=== PATIENT | female | born 1960 | race Caucasian/White ===

== ENCOUNTER → 2018-11-14 | Outpatient (CLI) | payer MEDICAID ==
[~2018-11-14] MED LIST: ACET325T14 PO; ALBU18HF INH; ALPR0.5T3 PO; BUDE0.5A NPPB; BUDE10.2 INH; BUPR150T73 PO; BUPR75TA6 PO; CLON0.5T PO; CLOT10TR PO; CYCL-259 PO; DIPH25CA61 PO; DOCU-131 PO; ESZO3TAB28 PO; FAMO20TA7 PO; FLUC200T PO; FLUD0.1T PO; FLUT16SP NAS; FLUT9.9S NAS; FOLI-17 PO; GABA-826 PO; GABA300C10 PO; GUAI5SYR PO; LEVE100020 PO; LEVE750T37 PO; LORA10TA75 PO; LORA1TAB PO; MONT10TA9 PO; MULT9LIQ10 PO; OMEP40CA6 PO; PARO20TA4 PO; PARO30TA3 PO; PARO30TA45 PO; PROP10TA16 PO; QUET25TA7 PO; SUMA50TA4 PO; THIA100T67 PO; TRAZ-137 PO; TRAZ300T2 PO; ZALE10CA PO; [UNRECOGNIZED DRUG - OTHER] INH; nasal spray NAS; sleep med PO
== END | disposition home or self-care (01) ==
LOC: RAD 09:17
PROVIDERS: ATTEND Nurse Practitioner Family
DX: J43.9 Emphysema, unspecified (principal); J96.90 Respiratory failure, unspecified, unspecified whether with hypoxia or hypercapnia; F17.200 Nicotine dependence, unspecified, uncomplicated; Z88.5 Allergy status to narcotic agent; Z88.8 Allergy status to other drugs, medicaments and biological substances
CPT/HCPCS: 71046

== ENCOUNTER 2019-01-29 19:17 | Inpatient (IN) | payer MEDICAID ==
[~2019-01-29] VITALS: Ht 177.8 cm; Wt 108.9 kg
[~2019-01-29 19:17] MED LIST changes: -FLUT16SP NAS; +FLUT16SP24 NAS
--- NOTE | 2019-01-29 19:30 | NUR ---
SEE TRIAGE NOTE. PT PLACED ON HEART MONITOR, BP CUFF, PULSE OX. XRAY AND LAB AT BS. EKG DONE ON ARRIVAL. PT C/O BOYLE AND CP, BOTH RATED 9/10. CALL LIGHT WITHIN REACH, PT UPDATED ON POC.
[2019-01-29 19:47] LABS: BASOPHILS # (AUTO) 0.04 x10^3/uL (0-0.1); BASOPHILS % (AUTO) 0 % (0-1); EOSINOPHILS # (AUTO) 0.11 x10^3/uL (0-0.4); EOSINOPHILS % (AUTO) 1 % (1-7); LYMPHOCYTES # (AUTO) 2.12 x10^3/uL (1-3.4); LYMPHOCYTES % (AUTO) 22 % (22-44); MD NO; MEAN CORPUSCULAR HEMOGLOBIN 33.4 pg (27.0-34.8); MEAN CORPUSCULAR HGB CONC 33.8 g/dL (32.4-35.8); MEAN CORPUSCULAR VOLUME 98.9 fL (80-100); MEAN PLATELET VOLUME 7.6 fL (7.4-10.4); MONOCYTES # (AUTO) 0.57 x10^3/uL (0.2-0.8); MONOCYTES % (AUTO) 6 % (2-9); NEUTROPHILS # (AUTO) 6.67 x10^3/uL (1.8-6.8); NEUTROPHILS % (AUTO) 70 % (42-75); PLATELET COUNT 250 x10^3/uL (130-400); RED BLOOD COUNT 4.65 x10^6/uL (3.82-5.3); RED CELL DISTRIBUTION WIDTH 13.9 % (9.6-15.2)
[2019-01-29 19:58] LABS: ALANINE AMINOTRANSFERASE 35 U/L (12-78); ANION GAP 11 mmol/L (5-15); CALCIUM 8.9 mg/dL (8.5-10.1); CHLORIDE 106 mmol/L (98-107)
[2019-01-29 20:03] LABS: ALKALINE PHOSPHATASE 207 U/L (45-117); BILIRUBIN,TOTAL 0.4 mg/dL (0.2-1.0); CREATININE 1.17 mg/dL (0.55-1.02); TOTAL PROTEIN 8.4 g/dL (6.4-8.2); TROPONIN I 0.032 ng/mL (0.000-0.045)
--- NOTE | 2019-01-29 20:15 | NUR ---
PT RESTING ON SIDE, APPEARS TO BE SLEEPING/NAD. AWAITING ADD ON LAB-BNP. CALL LIGHT WITHIN REACH.
[2019-01-29] MEDS ORDERED: MORPHINE SULFATE 4 MG/ML, 1ML IVPush PRN ×3 (21:00)
[2019-01-29] MEDS ORDERED: ONDANSETRON 2MG/ML, 2ML IVPush ONE (21:00)
[2019-01-29] MEDS ORDERED: ASPIRIN 81 MG TABLET CHEW PO ONE (21:00)
[2019-01-29] MEDS ORDERED: ONDANSETRON 2MG/ML, 2ML IVPush PRN ×2 (21:00→22:00)
[2019-01-29] MEDS ORDERED: ONDANSETRON 2MG/ML, 2ML ONE (21:11)
[2019-01-29] MEDS ORDERED: MORPHINE SULFATE 4 MG/ML, 1ML ONE (21:11)
[2019-01-29] MEDS ORDERED: HEPARIN 5,000 UNITS/ML, 1ML SQ SCH (22:00)
[2019-01-29] MEDS ORDERED: ACETAMINOPHEN 325 MG TABLET PO PRN (22:00)
[2019-01-29] MEDS ORDERED: POLYETHYLENE GLYCOL 17 GM PACKET PO PRN (22:00)
[2019-01-29] MEDS ORDERED: NITROGLYCERIN 0.4 MG BOTTLE (25 TABS) SL PRN (22:00)
[2019-01-29] MEDS ORDERED: BISACODYL 10 MG SUPP PR PRN (22:00)
[2019-01-29] MEDS ORDERED: BUDE10.2 HOMEINH (22:57)
[2019-01-29] MEDS ORDERED: CYCL30CA PO (22:57)
[2019-01-29] MEDS ORDERED: ZOLP5TAB PO (22:57)
[2019-01-29] MEDS ORDERED: ALPR0.5T PO (23:01)
[2019-01-29] MEDS: GABAPENTIN 300 MG CAPSULE PO SCH (23:02)
[2019-01-29] MEDS: SODIUM CHLORIDE FLUSH 10ML SYR IVF SCH (23:02)
[2019-01-29 23:05] LABS: FREE T4 (FREE THYROXINE) 1.03 ng/dL (0.76-1.46); THYROID STIMULATING HORMONE 1.35 mIU/L (0.358-3.740)
[2019-01-29 23:29] VITALS: BP 134/76
[2019-01-30] MEDS ORDERED: ALBUTEROL SULFATE 2.5 MG/3 ML NPPB PRN
[2019-01-30] MEDS ORDERED: ZOLPIDEM 5MG TABLET ONE (00:07)
[2019-01-30] MEDS: morphine SULFATE 10 MG/ML, 1ML IVPush PRN ×6 (00:13→22:40)
[2019-01-30] MEDS: ZOLPIDEM 5MG TABLET PO PRN ×2 (00:13→23:39)
[2019-01-30 00:23] VITALS: BP 149/88
[2019-01-30 02:35] LABS: BASOPHILS # (AUTO) 0.04 x10^3/uL (0-0.1); BASOPHILS % (AUTO) 1 % (0-1); EOSINOPHILS # (AUTO) 0.19 x10^3/uL (0-0.4); EOSINOPHILS % (AUTO) 3 % (1-7); LYMPHOCYTES # (AUTO) 2.67 x10^3/uL (1-3.4); LYMPHOCYTES % (AUTO) 36 % (22-44); MD NO; MEAN CORPUSCULAR HEMOGLOBIN 33.2 pg (27.0-34.8); MEAN CORPUSCULAR VOLUME 100.5 fL (80-100); MEAN PLATELET VOLUME 7.7 fL (7.4-10.4); MONOCYTES # (AUTO) 0.66 x10^3/uL (0.2-0.8); MONOCYTES % (AUTO) 9 % (2-9); NEUTROPHILS % (AUTO) 52 % (42-75); PLATELET COUNT 235 x10^3/uL (130-400); RED BLOOD COUNT 4.56 x10^6/uL (3.82-5.3); RED CELL DISTRIBUTION WIDTH 14.1 % (9.6-15.2)
[2019-01-30 02:50] LABS: TROPONIN I 0.516 ng/mL (0.000-0.045)
[2019-01-30 02:52] LABS: ALANINE AMINOTRANSFERASE 40 U/L (12-78); ALBUMIN 3.7 g/dL (3.4-5.0); ANION GAP 10 mmol/L (5-15); CALCIUM 8.8 mg/dL (8.5-10.1); CHLORIDE 107 mmol/L (98-107); CHOLESTEROL, TOTAL 233 mg/dL (140-239)
[2019-01-30 02:54] LABS: ALKALINE PHOSPHATASE 267 U/L (45-117); BILIRUBIN,TOTAL 0.6 mg/dL (0.2-1.0); CHOL/HDL RATIO 4.2; CREATININE 0.92 mg/dL (0.55-1.02); HDL CHOL % 24 % (28-40); HDL CHOLESTEROL (DIRECT) 56 mg/dL (40-60); LDL CHOLESTEROL,CALCULATED 149 mg/dL (54-169); LDL/HDL RATIO 2.7 (0.5-3.0); TOTAL PROTEIN 8.1 g/dL (6.4-8.2); TRIGLYCERIDES 142 mg/dL (50-200); VLDL CHOLESTEROL 28 mg/dL (0-25)
[2019-01-30] MEDS ORDERED: OMNIPAQUE 350 MG/ML, 100ML BOTTLE ONE (03:08)
[2019-01-30] MEDS ORDERED: HEPARIN 5,000 UNITS/ML, 1ML IV PRN (03:30)
[2019-01-30] MEDS ORDERED: HEPARIN 25,000 UNITS/500ML PMX 500 ML IV PRN (03:30)
[2019-01-30] MEDS ORDERED: HEPARIN 5,000 UNITS/ML, 1ML IV ONE (03:30)
[2019-01-30] MEDS: ATORVASTATIN 40 MG TABLET PO SCH ×2 (03:39→20:45)
[2019-01-30] MEDS: ASPIRIN 81 MG TABLET EC PO SCH (06:04)
[2019-01-30 08:27] VITALS: BP 112/79
[2019-01-30 08:53] LABS: TROPONIN I 0.877 ng/mL (0.000-0.045)
[2019-01-30] MEDS: SENNA/DOCUSATE TABLET PO SCH (09:00)
[2019-01-30] MEDS: BUDESONIDE 0.5 MG/2 ML INHA NPPB SCH ×2 (09:00→18:13)
[2019-01-30] MEDS: PAROXETINE 20 MG TABLET PO SCH (09:03)
[2019-01-30] MEDS: GABAPENTIN 300 MG CAPSULE PO SCH ×3 (09:03→20:45)
[2019-01-30] MEDS: SODIUM CHLORIDE FLUSH 10ML SYR IVF SCH ×2 (09:04→20:45)
[2019-01-30] MEDS: CARVEDILOL 3.125 MG TABLET PO SCH ×2 (09:54→20:45)
[2019-01-30] MEDS ORDERED: SODIUM CHLORIDE 0.9% 1,000 ML IV SCH (11:26)
[2019-01-30 13:43] VITALS: BP 93/61
[2019-01-30] MEDS ORDERED: VERAPAMIL 2.5 MG/ML, 2ML ONE (14:26)
[2019-01-30] MEDS ORDERED: BIVALIRUDIN 250 MG ONE (14:26)
[2019-01-30] MEDS ORDERED: MIDAZOLAM 1 MG/ML, 5ML ONE (14:26)
[2019-01-30] MEDS ORDERED: TICAGRELOR 90 MG TABLET ONE (14:26)
[2019-01-30] MEDS ORDERED: FENTANYL PF 100 MCG/2ML ONE (14:26)
[2019-01-30] MEDS ORDERED: LIDOCAINE-MPF 1%, 5ML ONE (14:27)
[2019-01-30] MEDS: SODIUM CHLORIDE 0.9% 1,000 ML IV SCH ×2 (15:33→19:03)
[2019-01-30 18:28] VITALS: BP 110/73
[2019-01-31 00:04] VITALS: BP 106/74
[2019-01-31] MEDS: morphine SULFATE 10 MG/ML, 1ML IVPush PRN ×5 (03:37→17:52)
[2019-01-31 04:59] LABS: ANION GAP 7 mmol/L (5-15); CALCIUM 8.4 mg/dL (8.5-10.1); CHLORIDE 109 mmol/L (98-107); CREATININE 0.75 mg/dL (0.55-1.02)
[2019-01-31 05:13] LABS: BASOPHILS # (AUTO) 0.02 x10^3/uL (0-0.1); BASOPHILS % (AUTO) 1 % (0-1); EOSINOPHILS # (AUTO) 0.14 x10^3/uL (0-0.4); EOSINOPHILS % (AUTO) 3 % (1-7); LYMPHOCYTES # (AUTO) 1.73 x10^3/uL (1-3.4); LYMPHOCYTES % (AUTO) 40 % (22-44); MD NO; MEAN CORPUSCULAR HEMOGLOBIN 32.5 pg (27.0-34.8); MEAN CORPUSCULAR HGB CONC 32.3 g/dL (32.4-35.8); MEAN CORPUSCULAR VOLUME 100.6 fL (80-100); MONOCYTES # (AUTO) 0.35 x10^3/uL (0.2-0.8); MONOCYTES % (AUTO) 8 % (2-9); NEUTROPHILS # (AUTO) 2.07 x10^3/uL (1.8-6.8); NEUTROPHILS % (AUTO) 48 % (42-75); PLATELET COUNT 193 x10^3/uL (130-400); RED BLOOD COUNT 4.17 x10^6/uL (3.82-5.3); RED CELL DISTRIBUTION WIDTH 14.4 % (9.6-15.2)
[2019-01-31] MEDS: CARVEDILOL 3.125 MG TABLET PO SCH ×2 (05:20→17:52)
[2019-01-31] MEDS: ASPIRIN 81 MG TABLET EC PO SCH (05:20)
[2019-01-31] MEDS: BUDESONIDE 0.5 MG/2 ML INHA NPPB SCH (06:49)
[2019-01-31 06:52] VITALS: BP 113/74
[2019-01-31] MEDS: SODIUM CHLORIDE 0.9% 1,000 ML IV SCH ×2 (07:10→15:10)
[2019-01-31] MEDS: SENNA/DOCUSATE TABLET PO SCH (09:45)
[2019-01-31] MEDS: GABAPENTIN 300 MG CAPSULE PO SCH ×2 (09:45→17:52)
[2019-01-31] MEDS: PAROXETINE 20 MG TABLET PO SCH (09:45)
[2019-01-31] MEDS: SODIUM CHLORIDE FLUSH 10ML SYR IVF SCH (09:45)
[2019-01-31 12:40] VITALS: BP 118/78
[2019-01-31] MEDS ORDERED: CARV3.1212 PO (19:07)
[2019-01-31] MEDS ORDERED: ASPI81TA45 PO (19:07)
[2019-01-31] MEDS ORDERED: ATOR40TA78 PO (19:07)
== END 2019-01-31 19:30 | disposition home or self-care (01) | DRG 281 ==
LOC: ED 20:59 → EDIP 21:45 → 5SO 22:03
PROVIDERS: ADMIT Internal Medicine; ATTEND Internal Medicine
PROC: 4A023N7 Measurement of Cardiac Sampling and Pressure, Left Heart, Percutaneous Approach (ICD-10-PCS; principal; 2019-01-30)
PROC: B2111ZZ Fluoroscopy of Multiple Coronary Arteries using Low Osmolar Contrast (ICD-10-PCS; 2019-01-30)
PROC: B2151ZZ Fluoroscopy of Left Heart using Low Osmolar Contrast (ICD-10-PCS; 2019-01-30)
DX: I21.4 Non-ST elevation (NSTEMI) myocardial infarction (principal); D68.69 Other thrombophilia; G89.29 Other chronic pain; M54.9 Dorsalgia, unspecified; Z96.653 Presence of artificial knee joint, bilateral; M17.0 Bilateral primary osteoarthritis of knee; J44.9 Chronic obstructive pulmonary disease, unspecified; I48.0 Paroxysmal atrial fibrillation; F41.9 Anxiety disorder, unspecified; F17.210 Nicotine dependence, cigarettes, uncomplicated; E66.9 Obesity, unspecified; F32.9 Major depressive disorder, single episode, unspecified; G43.909 Migraine, unspecified, not intractable, without status migrainosus; R56.9 Unspecified convulsions; E78.5 Hyperlipidemia, unspecified; I11.0 Hypertensive heart disease with heart failure; I50.9 Heart failure, unspecified; Z90.49 Acquired absence of other specified parts of digestive tract; Z82.61 Family history of arthritis; Z80.8 Family history of malignant neoplasm of other organs or systems; Z82.49 Family history of ischemic heart disease and other diseases of the circulatory system; Z88.6 Allergy status to analgesic agent; Z68.34 Body mass index [BMI] 34.0-34.9, adult; Z87.01 Personal history of pneumonia (recurrent)
CPT/HCPCS: 36415; 93458; J7626; 71045; 71046; 71275; 80048; 80053; 80061; 80307; 83880; 84439; 84443; 84484; 85025; 85520; 93005; 93306; 94640; 96374; 96375; 99156; C1769; C1894; G0378; J0583; J1644; J2250; J2405; J3010; Q9967; J2270; J7030

== ENCOUNTER 2019-04-06 07:42 | Outpatient (CLI) | payer MEDICAID ==
[~2019-04-06 07:42] MED LIST changes: +ALPR0.5T PO; +ASPI81TA45 PO; +ATOR40TA78 PO; +BUDE10.2 HOMEINH; +CARV3.1212 PO; +CYCL30CA PO; +ZOLP5TAB PO
== END 2019-04-06 23:59 | disposition home or self-care (01) ==
LOC: CFH 07:42
PROVIDERS: ATTEND Nurse Practitioner Family
DX: N64.4 Mastodynia (principal)
CPT/HCPCS: 77066; G0279

== ENCOUNTER 2019-06-04 16:44 | Emergency (ER) | payer MEDICAID ==
[~2019-06-04] VITALS: Ht 177.8 cm; Wt 100.0 kg
[~2019-06-04 16:44] MED LIST changes: +OMEP40CA42 PO; -OMEP40CA6 PO
--- NOTE | 2019-06-04 16:53 | NUR ---
PT BIB [facility] FOR ETOH W/DRAWAL. PIV WAS STARTED IN AMBULANCE BUT IV WAS ACCIDENTALLY REMOVED BY PT. APPROX 50CC FLUIDS ADMINISTERED TO PT. PT CURRENTLY RESTING ON GURNEY. TREMULOUS. VSS. WAS PLACED ON A LEGAL HOLD BY [employer] BECAUSE SHE TOLD THEM SHE TOOK ALL HER PILLS AND WANTED TO . PT STATES SHE TOOK A FEW PILLS TO HELP HER WITH WITHDRAWAL BUT NOT TO . PT CURRENLTY DENYING SI/HI. STATES HER LAST DRINK WAS AT 0200 THIS MORNING BECAUSE HER TOOK HER ALCOHOL AWAY FROM HER. 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
[2019-06-04] MEDS ORDERED: LORazepam 2 MG/ML, 1ML IM PRN (17:30)
--- NOTE | 2019-06-04 17:35 | NUR ---
PIV ATTEMPTED X2. AWARE.
[2019-06-04] MEDS ORDERED: LORazepam 2 MG/ML, 1ML ONE ×2 (17:41→18:52)
[2019-06-04 17:46] LABS: BASOPHILS # (AUTO) 0.03 x10^3/uL (0-0.1); BASOPHILS % (AUTO) 1 % (0-1); EOSINOPHILS # (AUTO) 0.09 x10^3/uL (0-0.4); EOSINOPHILS % (AUTO) 2 % (1-7); LYMPHOCYTES # (AUTO) 1.95 x10^3/uL (1-3.4); LYMPHOCYTES % (AUTO) 37 % (22-44); MD NO; MEAN CORPUSCULAR HEMOGLOBIN 34.1 pg (27.0-34.8); MEAN CORPUSCULAR HGB CONC 33.2 g/dL (32.4-35.8); MEAN CORPUSCULAR VOLUME 102.7 fL (80-100); MEAN PLATELET VOLUME 7.6 fL (7.4-10.4); MONOCYTES # (AUTO) 0.44 x10^3/uL (0.2-0.8); MONOCYTES % (AUTO) 8 % (2-9); NEUTROPHILS # (AUTO) 2.75 x10^3/uL (1.8-6.8); NEUTROPHILS % (AUTO) 52 % (42-75); PLATELET COUNT 220 x10^3/uL (130-400); RED BLOOD COUNT 4.55 x10^6/uL (3.82-5.3)
--- NOTE | 2019-06-04 17:46 | NUR ---
PT AMBULATORY WITH STEADY GAIT TO AND FROM BATHROOM. NOW RESTING ON GURNEY. NADN. MEDICATED PER EMAR. VSS.
[2019-06-04 17:58] LABS: ALBUMIN 3.6 g/dL (3.4-5.0); ANION GAP 12 mmol/L (5-15); CALCIUM 8.3 mg/dL (8.5-10.1); CHLORIDE 108 mmol/L (98-107); CREATININE 0.75 mg/dL (0.55-1.02)
[2019-06-04 18:30] LABS: AMPHETAMINE SCREEN, URINE Negative (Negative); BARBITURATE SCREEN, URINE Negative (Negative); BENZODIAZEPINE SCREEN, URINE Positive (Negative); CANNABINOID SCREEN, URINE Positive (Negative); COCAINE SCREEN, URINE Negative (Negative); METHADONE SCREEN, URINE Negative (Negative); OPIATE SCREEN, URINE Negative (Negative)
[2019-06-04] MEDS ORDERED: LORazepam 2 MG/ML, 1ML IVPush PRN (18:30)
[2019-06-04] MEDS ORDERED: DIPH,PERTUSS(ACELL),TET VAC/PF 0.5 ML IM-VACC ONE ×2 (18:30→18:52)
--- NOTE | 2019-06-04 18:36 | NUR ---
PIV BEING ATTEMPTED NOW.
--- NOTE | 2019-06-04 18:49 | NUR ---
RECEIVED REPORT FROM KAY GEIGER TO ASSUME CARE OF PT. AT THIS TIME. IV ESTABLISHED BY KAY JENNINGS. PT. TO BE MEDICATED NOW.
--- NOTE | 2019-06-04 19:01 | NUR ---
REPORT GIVEN TO KAY POWELL.
--- NOTE | 2019-06-04 19:13 | NUR ---
PT. PROVIDED WITH SANDWICH FROM [employer] WITH OK FROM DR. NI. PT. TO BE MEDICATED WITH PO LIBRIUM AND TO D/C AFTER THAT. ALL MONITORS AND SAFETY PRECAUTIONS IN PLACE. CALL LIGHT IN REACH.
[2019-06-04] MEDS ORDERED: CHLORDIAZEPOXIDE 25 MG CAPSULE PO PRN (19:30)
[2019-06-04] MEDS ORDERED: CHLORDIAZEPOXIDE 25 MG CAPSULE ONE (19:40)
--- NOTE | 2019-06-04 19:54 | NUR ---
PT. HAS DENIES ANY SI/HI SINCE THIS RN TAKING OVER AND ALSO PER REPORT FROM KAY GEIGER. PT. ATE SANDWICH PROVIDED.
[2019-06-04 19:55] VITALS: BP 108/65
== END 2019-06-04 19:57 | disposition home or self-care (01) ==
LOC: ED 19:51
DX: S00.83XA Contusion of other part of head, initial encounter (principal); S00.31XA Abrasion of nose, initial encounter; F10.239 Alcohol dependence with withdrawal, unspecified; G40.909 Epilepsy, unspecified, not intractable, without status epilepticus; I11.0 Hypertensive heart disease with heart failure; I50.9 Heart failure, unspecified; J44.9 Chronic obstructive pulmonary disease, unspecified; Z90.49 Acquired absence of other specified parts of digestive tract; W18.09XA Striking against other object with subsequent fall, initial encounter; Y93.89 Activity, other specified; Y92.89 Other specified places as the place of occurrence of the external cause; Y99.8 Other external cause status; Z88.5 Allergy status to narcotic agent; Z88.6 Allergy status to analgesic agent; Z91.048 Other nonmedicinal substance allergy status
CPT/HCPCS: 36415; 80048; 80307; 82040; 85025; 90471; 90715; 96372; 96374; 99283; J2060

== ENCOUNTER → 2019-06-18 | Outpatient (CLI) | payer MEDICAID | END | disposition home or self-care (01) | LOC: EDSTATUS 06-04 10:30 → CFH 13:36 → EDSTATUS 14:30 | PROVIDERS: ATTEND Internal Medicine | DX: J44.9 Chronic obstructive pulmonary disease, unspecified (principal); J40 Bronchitis, not specified as acute or chronic; R09.02 Hypoxemia; J43.8 Other emphysema; F41.9 Anxiety disorder, unspecified; Z87.891 Personal history of nicotine dependence; Z88.5 Allergy status to narcotic agent; Z88.6 Allergy status to analgesic agent; Z88.8 Allergy status to other drugs, medicaments and biological substances | CPT/HCPCS: 71250 ==

== ENCOUNTER 2019-08-06 17:18 | Outpatient (CLI) | payer MEDICAID ==
[~2019-08-06 17:18] MED LIST changes: +MONT10TA11 PO; -MONT10TA9 PO; -TRAZ-137 PO; +TRAZ-175 PO
== END 2019-08-06 23:59 | disposition home or self-care (01) ==
LOC: RAD 17:18
PROVIDERS: ATTEND Nurse Practitioner Family
DX: J40 Bronchitis, not specified as acute or chronic (principal); J84.10 Pulmonary fibrosis, unspecified; R05 Cough
CPT/HCPCS: 71046

== ENCOUNTER 2019-08-13 17:04 | Inpatient (IN) | payer MEDICAID ==
[~2019-08-13] VITALS: Ht 177.8 cm; Wt 87.1 kg
[~2019-08-13 17:04] MED LIST changes: -MONT10TA11 PO; +MONT10TA9 PO; +TRAZ-137 PO; -TRAZ-175 PO
--- NOTE | 2019-08-13 18:02 | NUR ---
[facility]
[2019-08-13] MEDS ORDERED: ATROVENT HFA (18:11)
[2019-08-13] MEDS ORDERED: TRILOGY (18:12)
--- NOTE | 2019-08-13 18:31 | NUR ---
PT REPORTS HER PRIMARY DOCTOR SENT HER TO BE SEEN. PT REPOERTS A CONSTANT COUGH. VS STABLE. NO ACUTE DISTRESS NOTED. PT WAS 87% RA. PT PLACED ON 2L NC. CALL LIGHT IN PLACE. WILL CONTINUE TO MONITOR.
--- NOTE | 2019-08-13 18:59 | NUR ---
Pt alert and sitting up on gurney. Lab at bedside for draw. Pt on 2.5L NC. Report received from KAY Malcolm
[2019-08-13] MEDS ORDERED: SODIUM CHLORIDE FLUSH 10ML SYR IVF ONE (19:00)
[2019-08-13] MEDS ORDERED: HYDROcodone/APAP 5/325 TABLET PO ONE ×2 (19:00→22:00)
[2019-08-13] MEDS ORDERED: methylPREDNISolone SOD SUCC 125 MG/2 ML IV ONE (19:00)
[2019-08-13] MEDS ORDERED: HYDROcodone/APAP 5/325 TABLET ONE ×2 (19:11→21:42)
[2019-08-13] MEDS ORDERED: methylPREDNISolone SOD SUCC 125 MG/2 ML ONE (19:11)
[2019-08-13 19:16] LABS: BASOPHILS # (AUTO) 0.04 x10^3/uL (0-0.1); BASOPHILS % (AUTO) 1 % (0-1); EOSINOPHILS # (AUTO) 0.22 x10^3/uL (0-0.4); EOSINOPHILS % (AUTO) 3 % (1-7); LYMPHOCYTES # (AUTO) 2.44 x10^3/uL (1-3.4); LYMPHOCYTES % (AUTO) 33 % (22-44); MD NO; MEAN CORPUSCULAR HEMOGLOBIN 33.3 pg (27.0-34.8); MEAN CORPUSCULAR HGB CONC 33.9 g/dL (32.4-35.8); MEAN CORPUSCULAR VOLUME 98.4 fL (80-100); MEAN PLATELET VOLUME 7.8 fL (7.4-10.4); MONOCYTES # (AUTO) 0.43 x10^3/uL (0.2-0.8); MONOCYTES % (AUTO) 6 % (2-9); NEUTROPHILS # (AUTO) 4.32 x10^3/uL (1.8-6.8); NEUTROPHILS % (AUTO) 58 % (42-75); PLATELET COUNT 258 x10^3/uL (130-400); RED BLOOD COUNT 4.67 x10^6/uL (3.82-5.3); RED CELL DISTRIBUTION WIDTH 14.1 % (9.6-15.2)
--- NOTE | 2019-08-13 19:25 | NUR ---
Pt medicated per SEP. Pt placed on water meter installer. Call light within reach.
[2019-08-13 19:26] LABS: ALANINE AMINOTRANSFERASE 40 U/L (12-78); ALBUMIN 3.8 g/dL (3.4-5.0); ANION GAP 8 mmol/L (5-15); CALCIUM 9.1 mg/dL (8.5-10.1); CHLORIDE 109 mmol/L (98-107); CREATININE 1.16 mg/dL (0.55-1.02)
[2019-08-13 19:29] LABS: ALKALINE PHOSPHATASE 164 U/L (45-117); BILIRUBIN,TOTAL 0.5 mg/dL (0.2-1.0); TOTAL PROTEIN 8.4 g/dL (6.4-8.2)
--- NOTE | 2019-08-13 19:43 | NUR ---
Pt ambulatory to restroom. Tissues provided. Call light within reach.
--- NOTE | 2019-08-13 20:48 | NUR ---
Pt reports improvment after medications but still reports feeling sore and tired. VS retaken. Call light in place.
[2019-08-13] MEDS ORDERED: ALBUTEROL SULFATE 2.5 MG/3 ML ONE (21:45)
--- NOTE | 2019-08-13 21:52 | NUR ---
Per room air trial pt O2 87%. Pt placed back on 2.5L. Pt medicated per SEP. RT at bedside for breathing tx. Pt remains on monitors.
[2019-08-13] MEDS ORDERED: ALBUTEROL SULFATE 2.5 MG/3 ML NPPB ONE (22:00)
--- NOTE | 2019-08-13 22:03 | NUR ---
Pt reports shaking and increased anxiety after albuterol tx, and would like a different tx next time.
[2019-08-13] MEDS ORDERED: LORazepam 0.5MG TABLET ONE (22:50)
[2019-08-13] MEDS ORDERED: CYCLOBENZAPRINE HCL HOMEMEDPO PRN (23:00)
[2019-08-13] MEDS ORDERED: BISACODYL 10 MG SUPP PR PRN (23:00)
[2019-08-13] MEDS ORDERED: ONDANSETRON ODT 4 MG PO PRN (23:00)
[2019-08-13] MEDS ORDERED: POLYETHYLENE GLYCOL 17 GM PACKET PO PRN (23:00)
[2019-08-13] MEDS ORDERED: LORazepam 0.5MG TABLET PO ONE (23:00)
--- NOTE | 2019-08-13 23:00 | NUR ---
Admitting MD at bedside. Pt continues to have shaking and reprots increased anxiety. Order for one time PO ativan received. Pt medciated per SEP. Pt offered warm blanket but declined.
[2019-08-13] MEDS ORDERED: GABAPENTIN 300 MG CAPSULE ONE (23:25)
[2019-08-13] MEDS: GABAPENTIN 300 MG CAPSULE PO SCH (23:28)
--- NOTE | 2019-08-13 23:32 | NUR ---
Pt given PRN xanax for anxiety. Pt given more water and soda. Solu-medrol held at this time d/t q6hr order with next dose due at 0100. Unable to reschedule on SEP at this time.
--- NOTE | 2019-08-13 23:33 | NUR ---
Report called to KAY Mcneil Addendum: 08/13/19 at 2333 by MRI Per floor nurseEwa flu swab requested d/t pt going into shared room. Swab collected and sent to lab.
[2019-08-14 00:04] LABS: RAPID INFLUENZA A Negative (Negative); RAPID INFLUENZA B Negative (Negative)
[2019-08-14 00:21] VITALS: BP 125/72
[2019-08-14] MEDS: ZOLPIDEM 10MG TABLET PO PRN (00:44)
[2019-08-14] MEDS: GUAIFENESIN/DM 200-20MG, 10ML UDC PO PRN ×2 (00:44→16:09)
[2019-08-14] MEDS: methylPREDNISolone SOD SUCC 125 MG/2 ML IVPush SCH ×4 (00:44→17:46)
[2019-08-14] MEDS: SODIUM CHLORIDE FLUSH 10ML SYR IVF SCH ×3 (00:45→20:15)
[2019-08-14 01:36] VITALS: BP 122/69
[2019-08-14] MEDS ORDERED: CYCLOBENZAPRINE 10 MG TABLET PO PRN (05:00)
[2019-08-14] MEDS: OXYcodone/APAP 5/325MG TABLET PO PRN ×3 (05:33→17:41)
[2019-08-14] MEDS: ASPIRIN 81 MG TABLET EC PO SCH (05:33)
[2019-08-14] MEDS: ALBUTEROL/IPRATROPIUM 2.5MG/0.5MG, 3 ML NPPB SCH ×2 (07:00→11:00)
[2019-08-14 07:34] VITALS: BP 120/70
[2019-08-14] MEDS: GABAPENTIN 300 MG CAPSULE PO SCH ×3 (07:50→20:14)
[2019-08-14] MEDS: PAROXETINE 20 MG TABLET PO SCH (07:50)
[2019-08-14] MEDS: SENNA/DOCUSATE TABLET PO SCH (07:50)
[2019-08-14] MEDS: ALPRazolam 1MG TAB PO PRN ×2 (07:50→20:14)
[2019-08-14 15:08] VITALS: BP 103/62
[2019-08-14] MEDS ORDERED: IPRATROPIUM 0.5 MG/2.5 ML INHA ONE (15:16)
[2019-08-14] MEDS: IPRATROPIUM 0.5 MG/2.5 ML INHA NPPB SCH ×2 (15:25→19:42)
[2019-08-14] MEDS ORDERED: AZITHROMYCIN 500 MG TABLET PO ONE (19:30)
[2019-08-14 20:14] VITALS: BP 124/74
[2019-08-14] MEDS: ACETAMINOPHEN 325 MG TABLET PO PRN (20:14)
[2019-08-14] MEDS: CYCLOBENZAPRINE 10 MG TABLET PO PRN (22:14)
[2019-08-15] MEDS: ZOLPIDEM 10MG TABLET PO PRN ×2 (00:05→23:12)
[2019-08-15] MEDS: methylPREDNISolone SOD SUCC 125 MG/2 ML IVPush SCH ×3 (00:05→17:28)
[2019-08-15 01:32] VITALS: BP 117/75
[2019-08-15] MEDS: ASPIRIN 81 MG TABLET EC PO SCH (06:14)
[2019-08-15 07:52] LABS: ALANINE AMINOTRANSFERASE 22 U/L (12-78); ALBUMIN 3.2 g/dL (3.4-5.0); ANION GAP 5 mmol/L (5-15); CHLORIDE 108 mmol/L (98-107); CREATININE 0.82 mg/dL (0.55-1.02)
[2019-08-15 07:54] LABS: ALKALINE PHOSPHATASE 136 U/L (45-117); BILIRUBIN,TOTAL 0.3 mg/dL (0.2-1.0); TOTAL PROTEIN 7.2 g/dL (6.4-8.2)
[2019-08-15] MEDS: SODIUM CHLORIDE FLUSH 10ML SYR IVF SCH ×2 (09:00→21:13)
[2019-08-15 09:12] VITALS: BP 124/72
[2019-08-15] MEDS: SENNA/DOCUSATE TABLET PO SCH (09:13)
[2019-08-15] MEDS: AZITHROMYCIN 250 MG TABLET PO SCH (09:13)
[2019-08-15] MEDS: GABAPENTIN 300 MG CAPSULE PO SCH ×3 (09:13→21:13)
[2019-08-15] MEDS: PAROXETINE 20 MG TABLET PO SCH (09:13)
[2019-08-15] MEDS: OXYcodone/APAP 5/325MG TABLET PO PRN ×2 (09:14→15:54)
[2019-08-15] MEDS: ALPRazolam 1MG TAB PO PRN ×2 (09:30→21:13)
[2019-08-15] MEDS: IPRATROPIUM 0.5 MG/2.5 ML INHA NPPB SCH ×4 (09:30→15:37)
[2019-08-15 14:49] VITALS: BP 134/67
[2019-08-15] MEDS: CYCLOBENZAPRINE 10 MG TABLET PO PRN (19:12)
[2019-08-15 20:24] VITALS: BP 142/77
[2019-08-15] MEDS: ACETAMINOPHEN 325 MG TABLET PO PRN (21:13)
[2019-08-16 01:15] VITALS: BP 143/84
[2019-08-16] MEDS: ASPIRIN 81 MG TABLET EC PO SCH (05:30)
[2019-08-16] MEDS: methylPREDNISolone SOD SUCC 125 MG/2 ML IVPush SCH (05:30)
[2019-08-16] MEDS: IPRATROPIUM 0.5 MG/2.5 ML INHA NPPB SCH ×3 (07:20→14:33)
[2019-08-16] MEDS ORDERED: AZIT250T89 PO (07:48)
[2019-08-16] MEDS ORDERED: ALBU8.5H8 INH (07:48)
[2019-08-16] MEDS: AZITHROMYCIN 250 MG TABLET PO SCH (08:23)
[2019-08-16] MEDS: SENNA/DOCUSATE TABLET PO SCH (08:23)
[2019-08-16] MEDS: PAROXETINE 20 MG TABLET PO SCH (08:23)
[2019-08-16] MEDS: ALPRazolam 1MG TAB PO PRN (08:24)
[2019-08-16] MEDS: GABAPENTIN 300 MG CAPSULE PO SCH (08:24)
[2019-08-16] MEDS: OXYcodone/APAP 5/325MG TABLET PO PRN (08:24)
[2019-08-16] MEDS: SODIUM CHLORIDE FLUSH 10ML SYR IVF SCH (08:24)
[2019-08-16 09:40] VITALS: BP 132/85
== END 2019-08-16 13:49 | disposition home or self-care (01) | DRG 192 ==
LOC: ED 19:07 → SUATTDRO 22:36 → EDIP 22:51 → 4EST 08-14 00:22
PROVIDERS: ADMIT Hospitalist; ATTEND Hospitalist
DX: J44.1 Chronic obstructive pulmonary disease with (acute) exacerbation (principal); I11.0 Hypertensive heart disease with heart failure; I50.9 Heart failure, unspecified; F41.1 Generalized anxiety disorder; I48.0 Paroxysmal atrial fibrillation; G89.29 Other chronic pain; M17.0 Bilateral primary osteoarthritis of knee; R09.02 Hypoxemia; I71.4 Abdominal aortic aneurysm, without rupture; Z96.653 Presence of artificial knee joint, bilateral; Z87.891 Personal history of nicotine dependence; Z90.49 Acquired absence of other specified parts of digestive tract; Z82.61 Family history of arthritis; Z80.8 Family history of malignant neoplasm of other organs or systems; Z88.5 Allergy status to narcotic agent; Z88.6 Allergy status to analgesic agent; Z88.8 Allergy status to other drugs, medicaments and biological substances; Z79.899 Other long term (current) drug therapy
CPT/HCPCS: 36415; 84145; 87400; 99285; J7613; J7620; J7644; 71045; 80053; 83605; 83735; 84100; 85025; 87040; 93005; 94640; G0378; J2930

== ENCOUNTER 2019-10-21 16:22 | Emergency (ER) | payer MEDICAID ==
[~2019-10-21] VITALS: Ht 177.8 cm; Wt 108.6 kg
[~2019-10-21 16:22] MED LIST changes: +ALBU8.5H8 INH; +ATROVENT HFA; +AZIT250T89 PO; +MONT10TA11 PO; -MONT10TA9 PO; -TRAZ-137 PO; +TRAZ-175 PO; +TRILOGY
--- NOTE | 2019-10-21 16:52 | NUR ---
PT SENT FROM PULMINOLOGIST TO GET "TESTED FOR THE VIRUS." PER PT BEEN HAVING SOB, RUNNY, NOES, GENERALIZED WEAKNESS FOR "SEVERAL WEEKS NOW." "I JUST THOUGHT IT WAS GOING TO GET BETTER AND IT NEVER DID."
--- NOTE | 2019-10-21 17:00 | NUR ---
ERMD AT BEDSIDE EVALUTING PT.
[2019-10-21] MEDS ORDERED: HYDROcodone/APAP 5/325 TABLET PO STA (17:04)
[2019-10-21] MEDS ORDERED: HYDROcodone/APAP 5/325 TABLET ONE (17:07)
--- NOTE | 2019-10-21 17:09 | NUR ---
RN ADMINSITERED MEDICATION FOR 810 BODY ACHES AND BOYLE PER EMAR. CXR AT BEDSIDE.
[2019-10-21 17:31] LABS: BASOPHILS # (AUTO) 0.04 x10^3/uL (0-0.1); BASOPHILS % (AUTO) 1 % (0-1); EOSINOPHILS # (AUTO) 0.29 x10^3/uL (0-0.4); EOSINOPHILS % (AUTO) 4 % (1-7); LYMPHOCYTES # (AUTO) 2.15 x10^3/uL (1-3.4); LYMPHOCYTES % (AUTO) 27 % (22-44); MD NO; MEAN CORPUSCULAR HEMOGLOBIN 33.7 pg (27.0-34.8); MEAN CORPUSCULAR HGB CONC 34.4 g/dL (32.4-35.8); MEAN PLATELET VOLUME 7.3 fL (7.4-10.4); MONOCYTES % (AUTO) 5 % (2-9); NEUTROPHILS # (AUTO) 5.08 x10^3/uL (1.8-6.8); NEUTROPHILS % (AUTO) 64 % (42-75); PLATELET COUNT 227 x10^3/uL (130-400); RED BLOOD COUNT 4.46 x10^6/uL (3.82-5.3); RED CELL DISTRIBUTION WIDTH 14.3 % (9.6-15.2)
[2019-10-21 17:40] LABS: ALBUMIN 3.5 g/dL (3.4-5.0); ANION GAP 8 mmol/L (5-15); CALCIUM 9.1 mg/dL (8.5-10.1); CHLORIDE 108 mmol/L (98-107); CREATININE 0.83 mg/dL (0.55-1.02)
[2019-10-21 17:43] LABS: TROPONIN I < 0.015 ng/mL (0.000-0.045)
--- NOTE | 2019-10-21 17:45 | NUR ---
PT AMBULATED TO RESTROOM. STEADY GAIT.
[2019-10-21 18:04] VITALS: BP 133/85
--- NOTE | 2019-10-21 18:25 | NUR ---
PT DISCHARGED HOME IN A STABLE CONDITION. DC INSTRUCTIONS WERE DICSUSSED WITH PT. PT VERBALIZED UNDERSTANDING. NO FURTHER QUESTIONS OR CONCERNS EXPRESSED AT THAT TIME. PT AMBULATED OUT OF ED WITH A STEADY GAIT.
== END 2019-10-21 18:27 | disposition home or self-care (01) ==
LOC: ED 17:01
DX: J44.9 Chronic obstructive pulmonary disease, unspecified (principal); Z20.828 Contact with and (suspected) exposure to other viral communicable diseases; I11.0 Hypertensive heart disease with heart failure; I50.9 Heart failure, unspecified; F17.200 Nicotine dependence, unspecified, uncomplicated; Z90.49 Acquired absence of other specified parts of digestive tract
CPT/HCPCS: 36415; 71045; 80048; 82040; 83880; 84484; 85025; 93005; 99285

== ENCOUNTER 2020-03-31 00:45 | Emergency (ER) | payer MEDICAID ==
[~2020-03-31] VITALS: Ht 177.8 cm; Wt 108.0 kg
[2020-03-31] MEDS ORDERED: MORPHINE SULFATE 4 MG/ML, 1ML IVPush ONE (01:30)
[2020-03-31] MEDS ORDERED: ONDANSETRON 2MG/ML, 2ML IVPush ONE (01:30)
--- NOTE | 2020-03-31 01:55 | NUR ---
WORKING TO OBTAIN IV ACCESS.
[2020-03-31] MEDS ORDERED: OMNIPAQUE 350 MG/ML, 100ML BOTTLE ONE (02:00)
[2020-03-31] MEDS ORDERED: LORazepam 2 MG/ML, 1ML ONE (02:17)
[2020-03-31] MEDS ORDERED: ONDANSETRON 2MG/ML, 2ML ONE (02:18)
[2020-03-31] MEDS ORDERED: MORPHINE SULFATE 4 MG/ML, 1ML ONE (02:19)
[2020-03-31 02:20] LABS: BASOPHILS # (AUTO) 0.03 x10^3/uL (0-0.1); BASOPHILS % (AUTO) 0 % (0-1); EOSINOPHILS # (AUTO) 0.34 x10^3/uL (0-0.4); EOSINOPHILS % (AUTO) 4 % (1-7); LYMPHOCYTES # (AUTO) 1.48 x10^3/uL (1-3.4); LYMPHOCYTES % (AUTO) 19 % (22-44); MD NO; MEAN CORPUSCULAR HEMOGLOBIN 33.4 pg (27.0-34.8); MEAN CORPUSCULAR HGB CONC 33.6 g/dL (32.4-35.8); MEAN CORPUSCULAR VOLUME 99.5 fL (80-100); MEAN PLATELET VOLUME 7.8 fL (7.4-10.4); MONOCYTES # (AUTO) 0.39 x10^3/uL (0.2-0.8); MONOCYTES % (AUTO) 5 % (2-9); NEUTROPHILS # (AUTO) 5.51 x10^3/uL (1.8-6.8); NEUTROPHILS % (AUTO) 71 % (42-75); PLATELET COUNT 208 x10^3/uL (130-400); RED BLOOD COUNT 4.04 x10^6/uL (3.82-5.3); RED CELL DISTRIBUTION WIDTH 14.7 % (9.6-15.2)
[2020-03-31 02:28] LABS: ALANINE AMINOTRANSFERASE 31 U/L (12-78); ALBUMIN 3.2 g/dL (3.4-5.0); ANION GAP 7 mmol/L (5-15); CHLORIDE 105 mmol/L (98-107); CREATININE 0.82 mg/dL (0.55-1.02)
[2020-03-31 02:30] LABS: ALKALINE PHOSPHATASE 109 U/L (45-117); BILIRUBIN,TOTAL 0.6 mg/dL (0.2-1.0); TOTAL PROTEIN 6.7 g/dL (6.4-8.2)
[2020-03-31] MEDS ORDERED: LORazepam 2 MG/ML, 1ML IVPush ONE (02:30)
--- NOTE | 2020-03-31 02:41 | NUR ---
CT MADE AWARE PT HAS LINE.
--- NOTE | 2020-03-31 02:55 | NUR ---
PT TO IMAGING AT 0245.
[2020-03-31] MEDS ORDERED: HYDROcodone/APAP 5/325 TABLET ONE (03:56)
[2020-03-31] MEDS ORDERED: HYDROcodone/APAP 5/325 TABLET PO ONE (04:00)
[2020-03-31 04:09] VITALS: BP 104/50
--- NOTE | 2020-03-31 04:16 | NUR ---
LATE ENTRY SUMMARY NOTE: MD WHITTAKER TO BEDSIDE TO UPDATE PT ON CT RESULTS AND POC INCLUDING D/C PLAN. UPON RECEIVING D/C INSTRUCTIONS PT EXPRESSED CONCERNS TO THIS RN ABOUT LACK OF BM. THIS RN SUGGESTED TRAMADOL TO PT FOR PAIN CONTROL INSTEAD OF AN OPIATE, PT RESPONDED "NO THAT DOESN'T WORK FOR ME, I'VE HAD IT BEFORE AND IT DOESN'T CONTROL THE PAIN." THIS RN ALSO CONFIRMED NORCO PAIN MED WITH MD WHITTAKER FOR SAME CONCERN OF CONSTIPATION. NO NEW ORDER RECEIVED, MD WHITTAKER REFERENCED CT RESULTS JUSTIFICATION. PT MEDICATED TO MAR, GIVEN RX AND EXTENSIVE EDUCATION ABOUT ALL MEDS SHE IS BEING GIVEN UPON D/C, PT STATES "SO THEY'RE NOT SENDING ME HOME WITH A RX FOR NORCO?" PT EDUCATED THAT OPIATE RX ARE VERY SELDOM GIVEN.
== END 2020-03-31 04:43 | disposition home or self-care (01) ==
LOC: ED 03:19
DX: K52.9 Noninfective gastroenteritis and colitis, unspecified (principal); R10.84 Generalized abdominal pain; J44.9 Chronic obstructive pulmonary disease, unspecified; I11.0 Hypertensive heart disease with heart failure; I50.9 Heart failure, unspecified; G40.909 Epilepsy, unspecified, not intractable, without status epilepticus; F17.210 Nicotine dependence, cigarettes, uncomplicated; Z90.710 Acquired absence of both cervix and uterus; Z90.49 Acquired absence of other specified parts of digestive tract
CPT/HCPCS: 36415; 74177; 80053; 85025; 96374; 96375; 99285; J2060; J2270; J2405; Q9967

== ENCOUNTER 2020-05-20 13:54 | Emergency (ER) | payer MEDICAID ==
[~2020-05-20] VITALS: Ht 177.8 cm; Wt 105.1 kg
--- NOTE | 2020-05-20 14:15 | NUR ---
[id number]
[2020-05-20 15:16] LABS: BASOPHILS % (AUTO) 1 % (0-1); EOSINOPHILS % (AUTO) 2 % (1-7); LYMPHOCYTES % (AUTO) 31 % (22-44); MEAN CORPUSCULAR HEMOGLOBIN 33.4 pg (27.0-34.8); MEAN CORPUSCULAR HGB CONC 33.5 g/dL (32.4-35.8); MEAN PLATELET VOLUME 7.9 fL (7.4-10.4); MONOCYTES % (AUTO) 6 % (2-9); NEUTROPHILS % (AUTO) 60 % (42-75); RED BLOOD COUNT 4.73 x10^6/uL (3.82-5.3); RED CELL DISTRIBUTION WIDTH 14.7 % (9.6-15.2)
[2020-05-20 15:23] LABS: ALBUMIN 3.8 g/dL (3.4-5.0); ANION GAP 3 mmol/L (5-15); CALCIUM 9.1 mg/dL (8.5-10.1); CHLORIDE 110 mmol/L (98-107)
[2020-05-20 15:28] LABS: ALANINE AMINOTRANSFERASE 21 U/L (12-78); ALKALINE PHOSPHATASE 133 U/L (45-117); BILIRUBIN,TOTAL 0.3 mg/dL (0.2-1.0); CREATININE 1.03 mg/dL (0.55-1.02); TOTAL PROTEIN 7.9 g/dL (6.4-8.2); TROPONIN I < 0.015 ng/mL (0.000-0.045)
[2020-05-20] MEDS ORDERED: TIOT4MIS3 INH (15:46)
[2020-05-20 15:48] LABS: MD SCAN; PLATELET COUNT 222 x10^3/uL (130-400)
[2020-05-20] MEDS ORDERED: HYDROcodone/APAP 5/325 TABLET ONE (15:53)
[2020-05-20] MEDS ORDERED: ALBUTEROL/IPRATROPIUM 2.5MG/0.5MG, 3 ML NPPB ONE (16:30)
[2020-05-20] MEDS ORDERED: HYDROcodone/APAP 5/325 TABLET PO ONE (16:30)
[2020-05-20 16:35] VITALS: BP 149/71
== END 2020-05-20 17:16 | disposition home or self-care (01) ==
LOC: ED 15:17
DX: S29.011A Strain of muscle and tendon of front wall of thorax, initial encounter (principal); R07.89 Other chest pain; R06.02 Shortness of breath; I11.0 Hypertensive heart disease with heart failure; I50.9 Heart failure, unspecified; G43.909 Migraine, unspecified, not intractable, without status migrainosus; J44.9 Chronic obstructive pulmonary disease, unspecified; Z87.891 Personal history of nicotine dependence; X58.XXXA Exposure to other specified factors, initial encounter; Y93.89 Activity, other specified; Y92.89 Other specified places as the place of occurrence of the external cause; Y99.8 Other external cause status
CPT/HCPCS: 36415; 71046; 71250; 80053; 84484; 85025; 93005; 99285

== ENCOUNTER → 2021-02-11 | Outpatient (CLI) | payer MEDICAID ==
[~2021-02-11] MED LIST changes: -CYCL-259 PO; +CYCL10TA2 PO; -FOLI-17 PO; +FOLI1TAB32 PO; -MONT10TA11 PO; +MONT10TA17 PO; -OMEP40CA42 PO; +OMEP40CA8 PO; +TIOT4MIS3 INH
== END | disposition home or self-care (01) ==
LOC: RAD 11:15
PROVIDERS: ATTEND Internal Medicine
DX: J47.9 Bronchiectasis, uncomplicated (principal); J43.9 Emphysema, unspecified; J92.9 Pleural plaque without asbestos; K44.9 Diaphragmatic hernia without obstruction or gangrene; K57.30 Diverticulosis of large intestine without perforation or abscess without bleeding; J84.10 Pulmonary fibrosis, unspecified; I25.10 Atherosclerotic heart disease of native coronary artery without angina pectoris
CPT/HCPCS: 71250

== ENCOUNTER 2021-04-24 15:11 | Emergency (ER) | payer MEDICAID ==
[~2021-04-24] VITALS: Ht 177.8 cm; Wt 97.0 kg
[2021-04-24] MEDS ORDERED: SODIUM CHLORIDE FLUSH 10ML SYR IVF ONE (16:00)
--- NOTE | 2021-04-24 16:15 | NUR ---
PT WANTS PAIN MEDS PRIOR TO XRAYS
[2021-04-24 16:46] LABS: ALANINE AMINOTRANSFERASE 35 U/L (12-78); ALBUMIN 3.6 g/dL (3.4-5.0); ANION GAP 9 mmol/L (5-15); CHLORIDE 105 mmol/L (98-107)
[2021-04-24 16:47] LABS: ALKALINE PHOSPHATASE 156 U/L (45-117); BILIRUBIN,TOTAL 0.5 mg/dL (0.2-1.0); TOTAL PROTEIN 8.1 g/dL (6.4-8.2)
[2021-04-24 16:51] LABS: BASOPHILS % (AUTO) 1 % (0-1); EOSINOPHILS % (AUTO) 1 % (1-7); LYMPHOCYTES % (AUTO) 16 % (22-44); MEAN CORPUSCULAR HEMOGLOBIN 33.8 pg (27.0-34.8); MEAN CORPUSCULAR HGB CONC 33.8 g/dL (32.4-35.8); MEAN PLATELET VOLUME 7.9 fL (7.4-10.4); MONOCYTES % (AUTO) 4 % (2-9); NEUTROPHILS % (AUTO) 78 % (42-75); PLATELET COUNT 239 x10^3/uL (130-400); RED BLOOD COUNT 4.33 x10^6/uL (3.82-5.3); RED CELL DISTRIBUTION WIDTH 16.2 % (9.6-15.2)
--- NOTE | 2021-04-24 17:23 | NUR ---
pt requesting meds prior to Xray
--- NOTE | 2021-04-24 18:57 | NUR ---
FIRST CONTACT WITH PT. PT IS SITTING UP IN BED TALKING TO HER . AAOX4. NADN. MULTIPLE BRUISES TO LEFT INNER ARM AND RIGHT POSTERIOR BACK. PT REPROTS FALLING INTO A BOOKSHELF X3 DAYS AGO. VSS.
[2021-04-24] MEDS ORDERED: MORPHINE SULFATE 4 MG/ML, 1ML IVPush ONE (19:30)
[2021-04-24] MEDS ORDERED: MORPHINE SULFATE 4 MG/ML, 1ML ONE (19:32)
--- NOTE | 2021-04-24 19:57 | NUR ---
PT TO CT
--- NOTE | 2021-04-24 20:07 | NUR ---
BACK FROM CT
[2021-04-24] MEDS ORDERED: OMNIPAQUE 350 MG/ML, 100ML BOTTLE ONE (20:26)
--- NOTE | 2021-04-24 20:33 | NUR ---
PT AMBULATED TO RESTROOM AND BACK
[2021-04-24 22:09] VITALS: BP 168/99
== END 2021-04-24 22:11 | disposition home or self-care (01) ==
LOC: ED 16:00
DX: S20.212A Contusion of left front wall of thorax, initial encounter (principal); S40.022A Contusion of left upper arm, initial encounter; S30.1XXA Contusion of abdominal wall, initial encounter; J44.9 Chronic obstructive pulmonary disease, unspecified; I11.0 Hypertensive heart disease with heart failure; I50.9 Heart failure, unspecified; G43.909 Migraine, unspecified, not intractable, without status migrainosus; F17.200 Nicotine dependence, unspecified, uncomplicated; Z90.49 Acquired absence of other specified parts of digestive tract; W01.0XXA Fall on same level from slipping, tripping and stumbling without subsequent striking against object, initial encounter; Y93.89 Activity, other specified; Y92.009 Unspecified place in unspecified non-institutional (private) residence as the place of occurrence of the external cause; Y99.8 Other external cause status
CPT/HCPCS: 36415; 71045; 71260; 72110; 72131; 74177; 80053; 85025; 96374; 99285; J2270; Q9967